=== PATIENT | female | born 1980 | race Caucasian/White ===

== ENCOUNTER 2024-04-05 20:16 | Emergency (ER) | payer OTHER ==
[2024-04-05 20:35] VITALS: RESP 18; TEMP 97
--- NOTE | 2024-04-05 20:40 | ERPHSYRPT ---
- History of Present Illness Time Seen by Provider: 04/05/24 20:30 Historian: patient Exam Limitations: no limitations Physician History: This is a 44-year-old white female patient who was on Cymbalta approximately 30 days ago. She did not like the way it made her feel. Relatively recently she was placed in the hospital and was discharged in the hospital because of acute liver failure that she experienced, per her report, secondary to taking supplements. She was in the hospital with liver failure and diagnosed with hepatitis. She is on an antiviral medication. In the last 7 to 8 days since she has been off of her Cymbalta, she has had intermittent vomiting without abdominal pain. She denies chest pain. She denies shortness of breath. Patient states that she is on Suboxone. Patient has a history of psoriasis. Timing/Duration: day(s) (7), worse Activities at Onset: none Severity of Pain-Max: none Severity of Pain-Current: none Modifying Factors: Improves With: vomiting Associated Symptoms: loss of appetite, nausea, vomiting, weakness Previous symptoms: no prior history, no recent treatment Allergies/Adverse Reactions: Penicillins Allergy (Intermediate, Verified 04/05/24 20:20) rash/swelling gabapentin Allergy (Verified 04/05/24 20:20) Hives Home Medications: Methadone HCl 5 mg PO DAILY 04/05/24 [History] Tenofovir Disoproxil Fumarate 300 mg PO DAILY 04/05/24 [History] Hx Tetanus, Diphtheria Vaccination/Date Given: No Hx Influenza Vaccination/Date Given: No Hx Pneumococcal Vaccination/Date Given: No Travel Risk - International Travel Have you traveled outside of the country in past 3 weeks: No - Emerging Infectious Disease Are you exhibiting symptoms associated with any current EIDs: No - Review of Systems Constitutional: Weakness Eyes: No Symptoms Ears, Nose, & Throat: No Symptoms Respiratory: No Symptoms Cardiac: No Symptoms Abdominal/Gastrointestinal: Nausea, Vomiting, Appetite Changes Genitourinary Symptoms: No Symptoms Musculoskeletal: No Symptoms Skin: No Symptoms Neurological: No Symptoms Psychological: No Symptoms Endocrine: No Symptoms Hematologic/Lymphatic: No Symptoms Immunological/Allergic: No Symptoms All Other Systems: Reviewed and Negative - Past Medical History Pertinent Past Medical History: Yes Neurological History: No Pertinent History ENT History: No Pertinent History Cardiac History: No Pertinent History Respiratory History: No Pertinent History Endocrine Medical History: No Pertinent History Musculoskeletal History: Other GI Medical History: No Pertinent History History: No Pertinent History Psycho-Social History: Anxiety, Depression Female Reproductive Disorders: No Pertinent History Other Medical History: Chronic Back pain - Past Surgical History Past Surgical History: Yes Neuro Surgical History: No Pertinent History Cardiac: No Pertinent History Respiratory: No Pertinent History Gastrointestinal: No Pertinent History Genitourinary: No Pertinent History Musculoskeletal: No Pertinent History Female Surgical History: Section - Female History Hx Last Menstrual Period: currently - Social History Smoking Status: Former smoker Exposure to second hand smoke: No Drug Use: none Patient Lives Alone: No - Nursing Vital Signs Nursing Vital Signs: Initial Vital Signs Temperature 97 F 04/05/24 20:23 Pulse Rate 111 H 04/05/24 20:23 Respiratory Rate 18 04/05/24 20:23 Blood Pressure 159/110 04/05/24 20:23 O2 Sat by Pulse Oximetry 95 04/05/24 20:23 Pain Scale Pain Intensity 3 - Physical Exam General Appearance: mild distress, alert, anxiety Eye Exam: PERRL/EOMI, eyes nml inspection Ears, Nose, Throat Exam: normal ENT inspection, moist mucous membranes Neck Exam: normal inspection, non-tender, supple, full range of motion Respiratory Exam: normal breath sounds, lungs clear, airway intact, No chest tenderness, No respiratory distress Cardiovascular Exam: regular rate/rhythm, normal heart sounds, normal peripheral pulses Gastrointestinal/Abdomen Exam: soft, normal bowel sounds, No tenderness Pelvic Exam: not done Rectal Exam: not done Back Exam: normal inspection, normal range of motion, No CVA tenderness, No vertebral tenderness Extremity Exam: normal inspection, normal range of motion, pelvis stable Neurologic Exam: alert, oriented x 3, cooperative, 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, nml cerebellar function, nml station & gait, sensation nml Skin Exam: rash (Psoriatic skin lesions per patient report) Lymphatic Exam: No adenopathy SpO2 Interpretation: normal O2 Delivery: Room Air - Course Nursing assessment & vital signs reviewed: Yes Ordered Tests: Active Orders 24 hr Category Date Time Status IV Insertion STAT Care 04/05/24 20:43 Active Pulse Oximetry (ED) STAT Care 04/05/24 20:43 Active AMYLASE Stat Lab 04/05/24 20:47 Completed CBC W DIFF Stat Lab 04/05/24 20:47 Completed CMP Stat Lab 04/05/24 20:47 Completed CULTURE,URINE Stat Lab 04/05/24 22:25 Received LIPASE Stat Lab 04/05/24 20:47 Completed Lactic Acid Stat Lab 04/05/24 20:43 Completed MAGNESIUM Stat Lab 04/05/24 20:47 Completed UA W/RFX UR CULTURE Stat Lab 04/05/24 22:25 Completed Medication Summary Discontinued Medications Generic Name Dose Route Start Last Admin Trade Name Rossy PRN Reason Stop Dose Admin Methylprednisolone Sodium 0 mg 04/05/24 20:44 04/05/24 20:55 Succinate 125 mg/ Sterile IV 04/05/24 20:45 125 mg Water 2 ml STAT ONE Administration Sodium Chloride 1,000 mls @ 999 mls/hr 04/05/24 20:43 04/05/24 22:11 Sodium Chloride 0.9% 1000 Ml IV 04/05/24 21:43 Infused .Q1H1M STA Infusion Sodium Chloride Confirm 04/05/24 20:49 Sodium Chloride 0.9% 1000 Ml Administered 04/05/24 20:50 Dose 1,000 mls @ ud .ROUTE .STK-MED ONE Sodium Chloride 1,000 mls @ 999 mls/hr 04/05/24 21:35 04/05/24 22:41 Sodium Chloride 0.9% 1000 Ml IV 04/05/24 22:35 Infused .Q1H1M STA Infusion Sodium Chloride Confirm 04/05/24 21:38 Sodium Chloride 0.9% 1000 Ml Administered 04/05/24 21:39 Dose 1,000 mls @ ud .ROUTE .STK-MED ONE Methylprednisolone Sodium Succinate Confirm 04/05/24 20:49 Methylprednis Sod Succ 125 Mg/2 Ml Vial Administered 04/05/24 20:50 Dose 125 mg .ROUTE .STK-MED ONE Metronidazole 500 mg 04/05/24 22:45 Metronidazole 500 Mg Tablet PO 04/05/24 22:46 STAT ONE Ondansetron HCl 4 mg 04/05/24 20:44 04/05/24 20:52 Ondansetron Hcl 4 Mg/2 Ml Vial IV 04/05/24 20:45 4 mg STAT ONE Administration Ondansetron HCl Confirm 04/05/24 20:49 Ondansetron Hcl 4 Mg/2 Ml Vial Administered 04/05/24 20:50 Dose 4 mg .ROUTE .STK-MED ONE Sterile Water Confirm 04/05/24 20:49 Water For Injection,Sterile 10 Ml Vial Administered 04/05/24 20:50 Dose 10 ml IJ .STK-MED ONE Lab/Rad Data: Laboratory Result Diagrams 04/05/24 20:47 04/05/24 20:47 Laboratory Results 04/05/24 04/05/24 04/05/24 Range/Units 22:25 20:47 20:47 WBC 7.1 (3.98-10.04) x10^3/uL RBC 4.49 (3.93-5.22) x10^6/uL Hgb 14.3 (11.2-15.7) g/dL Hct 41.3 (34.1-44.9) % MCV 92.0 (79.4-94.8) fL MCH 31.8 (25.6-32.2) pg MCHC 34.6 (32.2-35.5) g/dL RDW 11.7 (11.7-14.4) % Plt Count 351 (182-369) x10^3/uL MPV 12.0 (9.4-12.3) fL Gran % 56.0 (34.0-71.1) % Immature Gran % (Auto) 0.3 (0.001-0.429) % Nucleat RBC Rel Count 0.0 (0.00-0.2) % Eos # (Auto) 0.09 (0.04-0.36) x10^3/uL Immature Gran # (Auto) 0.02 (0.001-0.031) x10^3u/L Absolute Lymphs (auto) 2.24 (1.18-3.74) x10^3/uL Absolute Monos (auto) 0.74 (0.24-0.86) x10^3/uL Absolute Nucleated RBC 0.00 (0.00-0.012) x10^3u/L Lymphocytes % 31.4 (19.3-51.7) % Monocytes % 10.4 (4.7-12.5) % Eosinophils % 1.3 (0.7-5.8) % Basophils % 0.6 (0.1-1.2) % Absolute Granulocytes 4.00 (1.56-6.13) x10^3/uL Basophils # 0.04 (0.01-0.08) x10^3/uL Sodium 136 (135-145) mmol/L Potassium 4.4 (3.5-5.1) mmol/L Chloride 97 L (98-107) mmol/L Carbon Dioxide 29 (22-30) mmol/L Anion Gap 14.9 (5-15) MEQ/L BUN 13 (7-17) mg/dL Creatinine 0.76 (0.52-1.04) mg/dL Estimated GFR 99.7 ML/MIN Glucose 106 (74-106) mg/dL Lactic Acid (0.4-2.0) Calcium 10.3 H (8.4-10.2) mg/dL Magnesium 1.6 (1.6-2.3) mg/dL Total Bilirubin 1.00 (0.2-1.3) mg/dL AST 36 (14-36) U/L ALT 27 (0-35) U/L Alkaline Phosphatase 97 (38-126) U/L Serum Total Protein 7.9 (6.3-8.2) g/dL Albumin 4.9 (3.5-5.0) g/dL Amylase 45 (30-110) U/L Lipase 305 H (23-300) U/L Urine Color Dark Yellow A (Yellow) Urine Appearance Cloudy A (Clear) Urine pH 5.5 (4.6-8.0) Ur Specific [place] 1.025 (1.005-1.030) Urine Protein Trace A (Negative) Urine Glucose (UA) Negative (Negative) mg/dL Urine Ketones 40 A (Negative) Urine Blood Small A (Negative) Urine Nitrite Negative (Negative) Urine Bilirubin Small A (Negative) Urine Urobilinogen 1.0 A (0.2) mg/dL Ur Leukocyte Esterase Moderate A (Negative) U Hyaline Cast (Auto) 6-10 A (0-2) /LPF Urine Microscopic RBC 3-5 (0-5) /HPF Urine Microscopic WBC 21-50 A (0-5) /HPF Ur Epithelial Cells Rare (None Seen) /HPF Calcium Oxalate Crystal 26-50 A (None Seen) /HPF Urine Bacteria Rare A (None Seen) /HPF Urine Mucus Few A (NEGATIVE) /HPF Urine Trichomonas Few A (None Seen) /HPF Urine Culture Reflexed YES (NO) 04/05/24 Range/Units 20:43 WBC (3.98-10.04) x10^3/uL RBC (3.93-5.22) x10^6/uL Hgb (11.2-15.7) g/dL Hct (34.1-44.9) % MCV (79.4-94.8) fL MCH (25.6-32.2) pg MCHC (32.2-35.5) g/dL RDW (11.7-14.4) % Plt Count (182-369) x10^3/uL MPV (9.4-12.3) fL Gran % (34.0-71.1) % Immature Gran % (Auto) (0.001-0.429) % Nucleat RBC Rel Count (0.00-0.2) % Eos # (Auto) (0.04-0.36) x10^3/uL Immature Gran # (Auto) (0.001-0.031) x10^3u/L Absolute Lymphs (auto) (1.18-3.74) x10^3/uL Absolute Monos (auto) (0.24-0.86) x10^3/uL Absolute Nucleated RBC (0.00-0.012) x10^3u/L Lymphocytes % (19.3-51.7) % Monocytes % (4.7-12.5) % Eosinophils % (0.7-5.8) % Basophils % (0.1-1.2) % Absolute Granulocytes (1.56-6.13) x10^3/uL Basophils # (0.01-0.08) x10^3/uL Sodium (135-145) mmol/L Potassium (3.5-5.1) mmol/L Chloride (98-107) mmol/L Carbon Dioxide (22-30) mmol/L Anion Gap (5-15) MEQ/L BUN (7-17) mg/dL Creatinine (0.52-1.04) mg/dL Estimated GFR ML/MIN Glucose (74-106) mg/dL Lactic Acid 2.6 H (0.4-2.0) Calcium (8.4-10.2) mg/dL Magnesium (1.6-2.3) mg/dL Total Bilirubin (0.2-1.3) mg/dL AST (14-36) U/L ALT (0-35) U/L Alkaline Phosphatase (38-126) U/L Serum Total Protein (6.3-8.2) g/dL Albumin (3.5-5.0) g/dL Amylase (30-110) U/L Lipase (23-300) U/L Urine Color (Yellow) Urine Appearance (Clear) Urine pH (4.6-8.0) Ur Specific [place] (1.005-1.030) Urine Protein (Negative) Urine Glucose (UA) (Negative) mg/dL Urine Ketones (Negative) Urine Blood (Negative) Urine Nitrite (Negative) Urine Bilirubin (Negative) Urine Urobilinogen (0.2) mg/dL Ur Leukocyte Esterase (Negative) U Hyaline Cast (Auto) (0-2) /LPF Urine Microscopic RBC (0-5) /HPF Urine Microscopic WBC (0-5) /HPF Ur Epithelial Cells (None Seen) /HPF Calcium Oxalate Crystal (None Seen) /HPF Urine Bacteria (None Seen) /HPF Urine Mucus (NEGATIVE) /HPF Urine Trichomonas (None Seen) /HPF Urine Culture Reflexed (NO) - Progress Progress: improved Progress Note: 04/05/24 20:40 My medical decision making and the assignment of moderate complexity to this patient's medical issue today is based on review of the patient's past medical history, review the patient's medication list, reviewed patient drug allergy list, history present illness and physical findings on examination. The workup in this patient includes placement of intravenous line, infusion of normal saline solution, infusion of Zofran, CBC, CMP, magnesium level, urinalysis. Differential diagnosis includes but is not limited to dehydration, urinary tract infection, electrolyte abnormalities, psoriasis flareup 04/05/24 22:20 I interpreted the patient's laboratory data results. Based on the laboratory data results the patient has a urinary tract infection and has trichomoniasis but there are no other acute, emergent medical issues. 04/05/24 22:47 Counseled pt/family regarding: lab results, diagnosis, need for follow-up Medical Desision Making - Diagnostic Testing Diagnostic test were ordered, analyzed, and reviewed by me: Yes - Risk of complications The pt has a mod risk of morbidity or mortality based on: Need for prescription drug management - Departure Departure Disposition: Home Clinical Impression: Vomiting, Dehydration, Psoriasis, UTI (urinary tract infection), Trichomoniasis Condition: Stable Critical Care Time: No Referrals: LEON MARTINEZ, DO [Primary Care Provider] - Follow up/PCP as directed Additional Instructions: Keep your skin moist with unscented emollients. Use your topical steroids as prescribed. Call your primary care provider on 04/08/2024 to make arrangements for follow-up appointment for further evaluation management and to be seen in the next 3 to 5 days. Drink a clear liquid diet. Do not advance yo ur diet until you are taking clear liquids and well. Prescriptions: Ciprofloxacin [Cipro 500 MG] 500 mg PO BID #14 tablet Metronidazole 500 mg [Flagyl 500 MG] 500 mg PO TID #21 tablet Triamcinolone 0.1% Cream [Kenalog 0.1% Cream 15 gm] 15 gm TP TID #1 unit
[2024-04-05 20:49] LABS: BASOPHIL % 0.6 % (0.1-1.2); Basophil (Absolute #) 0.04 x10^3/uL (0.01-0.08); Eosinophil % 1.3 % (0.7-5.8); Eosinophil (Absolute #) 0.09 x10^3/uL (0.04-0.36); Hematocrit 41.3 % (34.1-44.9); Hemoglobin 14.3 g/dL (11.2-15.7); IMMATURE GRAN # 0.02 x10^3u/L (0.001-0.031); IMMATURE GRAN % 0.3 % (0.001-0.429); Lymphocyte (Absolute #) 2.24 x10^3/uL (1.18-3.74); Lymphocytes % 31.4 % (19.3-51.7); Mean Corpuscular Hemoglobin 31.8 pg (25.6-32.2); Mean Corpuscular Hgb Concent. 34.6 g/dL (32.2-35.5); Monocyte (Absolute #) 0.74 x10^3/uL (0.24-0.86); Monocytes % 10.4 % (4.7-12.5); Platelet Count 351 x10^3/uL (182-369); Red Blood Count 4.49 x10^6/uL (3.93-5.22); Red Cell Distribution Width 11.7 % (11.7-14.4); White Blood Count 7.1 x10^3/uL (3.98-10.04)
[2024-04-05] MEDS ORDERED: Sterile H2O 10 ml IJ ONE (20:49)
[2024-04-05] MEDS ORDERED: Sodium Chloride 0.9% 1000 ML 1,000 ML ONE ×2 (20:49→21:38)
[2024-04-05] MEDS ORDERED: Zofran 4 MG/2 ML VIAL ONE (20:49)
[2024-04-05] MEDS ORDERED: solu-MEDROL ONE (20:49)
[2024-04-05] MEDS: Sodium Chloride 0.9% 1000 ML 1,000 ML IV STA ×2 (20:50→21:38)
[2024-04-05] MEDS: Zofran 4 MG/2 ML VIAL IV ONE (20:52)
[2024-04-05] MEDS: solu-MEDROL 125 MG, Sterile H2O 10 ml 2 ML IV ONE (20:55)
[2024-04-05 20:56] LABS: ALBUMIN 4.9 g/dL (3.5-5.0); ANION GAP 14.9 MEQ/L (5-15); Calcium 10.3 mg/dL (8.4-10.2); Creatinine 1 0.76 mg/dL (0.52-1.04); EST GLOMERULAR FILTRATION RATE 99.7 ML/MIN; MAGNESIUM 1.6 mg/dL (1.6-2.3); Potassium 4.4 mmol/L (3.5-5.1); Total Protein 7.9 g/dL (6.3-8.2)
[2024-04-05 22:44] LABS: Appearance Cloudy (Clear); Bacteria Rare /HPF (None Seen); Bilirubin Small (Negative); Blood Small (Negative); Epithelial Cells Rare /HPF (None Seen); Glucose, Urine Negative (Negative); Ketones 40 (Negative); Leukocyte Esterase Moderate (Negative); Mucus Few /HPF (NEGATIVE); Nitrite Negative (Negative); Ph 5.5 (4.6-8.0); Protein,Urine Dip Trace (Negative); Specific Gravity 1.025 (1.005-1.030); Trichomonas Few /HPF (None Seen); WBC 21-50 /HPF (0-5)
[2024-04-05 22:45] LABS: Calcium Oxalate Crystals 26-50 /HPF (None Seen)
[2024-04-05] MEDS ORDERED: Levofloxacin 500 MG Tablet ONE (22:48)
[2024-04-05] MEDS: Flagyl 500 MG PO ONE (22:49)
[2024-04-05] MEDS: Levofloxacin 500 MG Tablet PO ONE (22:49)
[2024-04-05] MEDS ORDERED: Flagyl 500 MG ONE (22:49)
[2024-04-05 23:07] VITALS: BP 124/80; PULSE 85; O2SAT 99
== END 2024-04-05 23:17 | disposition home or self-care (01) ==
LOC: ED 20:16
DX: N39.0 Urinary tract infection, site not specified (principal); A59.00 Urogenital trichomoniasis, unspecified; R11.2 Nausea with vomiting, unspecified; E86.0 Dehydration; L40.9 Psoriasis, unspecified; Z79.52 Long term (current) use of systemic steroids; Z79.891 Long term (current) use of opiate analgesic; Z79.899 Other long term (current) drug therapy
CPT/HCPCS: 36415; 80053; 81001; 82150; 83605; 83690; 83735; 85025; 87086; 94760; 96360; 96361; 96374; 96375; 99284; J2405; J2919; A9270-GY